=== PATIENT | male | born 1955 | race Caucasian/White ===

== ENCOUNTER → 2019-05-03 | Outpatient (CLI) | payer OTHER ==
[~2019-05-03] MED LIST: NAPR-683 PO; OXYC1TAB15 PO; SIMV20TA3 PO
--- NOTE | 2019-05-03 11:58 | RAD ---
RENAL COMPLETE BILATERAL History: Left flank pain, history of bladder cancer Comparison: None Findings: Multiple sonographic images of kidneys and urinary bladder are submitted. Right kidney measured 12 x 5 x 4.1 cm. The left kidney measured 13 x 5 x 5.8 cm. There is no hydronephrosis of either kidney. Urinary bladder morphology is overall within normal limits. Impression: 1. No significant abnormality is demonstrated. Electronically signed by: Saeed Varela MD (05/03/2019 11:55 AM) [id number]
== END | disposition home or self-care (01) ==
LOC: PMG 10:21
PROVIDERS: ATTEND Physician Assistant Medical
DX: R10.9 Unspecified abdominal pain (principal); Z85.51 Personal history of malignant neoplasm of bladder
CPT/HCPCS: 76770

== ENCOUNTER → 2019-06-06 | Outpatient (CLI) | payer OTHER ==
--- NOTE | 2019-06-06 13:14 | RAD ---
EXAM: Pelvis and bilateral hips, 5 views. HISTORY: Pain. COMPARISON: None. FINDINGS: A frontal view the pelvis and frontal and frog-leg views of both hips are obtained. There is no fracture, dislocation or subluxation. There is degenerative change at the lumbosacral junction. IMPRESSION: No acute osseous finding. Electronically signed by: Rita Camp MD (06/06/2019 1:11 PM) [facility]
== END | disposition home or self-care (01) ==
LOC: DXRAD 08:20
PROVIDERS: ATTEND Physician Assistant Medical
DX: M47.817 Spondylosis without myelopathy or radiculopathy, lumbosacral region (principal)
CPT/HCPCS: 73521

== ENCOUNTER 2021-03-03 12:16 | Emergency (ER) | payer OTHER ==
[~2021-03-03] VITALS: Ht 190.5 cm; Wt 105.0 kg
[~2021-03-03 12:16] MED LIST changes: +SIMV20TA18 PO; -SIMV20TA3 PO
[2021-03-03] MEDS ORDERED: ONDANSETRON PF 4 MG/2 ML VIAL. IVP ONE ×2 (12:45→16:30)
[2021-03-03] MEDS ORDERED: KETOROLAC 30 MG/ML VIAL. IVP ONE (12:45)
[2021-03-03] MEDS ORDERED: IOHEXOL 300 MG/ML 75 ML VIAL. IV ONE (13:00)
--- NOTE | 2021-03-03 13:42 | PHYS DOC ---
Past History Past Medical History: Cancer, Other Additional Past Medical Histor: SPINAL STENOSIS, BLADDER CANCER Past Surgical History: Other Additional Past Surgical Histo: BLADDER TUMOR REMOVED Alcohol Use: None General Adult EDM: Chief Complaint: ABDOMINAL PAIN HPI: HPI: 66-year-old male past medical history of bladder cancer s/p resection/in remission, presents to the ED with his sister Aliyah, (patient consents to his/her/their knowledge and involvement in pts' medical care), c/o sudden onset suprapubic abdominal pain, nausea and vomiting for the past 3 hours. States he's never had these sxs before. States pain is not hard to localize. No h/o kidney stones. Review of Systems: Review of Systems: Constitutional: Denies fever or chills Eyes: Denies change in visual acuity HENT: Denies nasal congestion or sore throat Respiratory: Denies cough or shortness of breath Cardiovascular: Denies chest pain or edema GI: Denies bloody stools or diarrhea : Denies dysuria or hematuria Musculoskeletal: Denies back pain or joint pain Integument: Denies rash or diaphoresis Neurologic: Denies headache, focal weakness or sensory changes Endocrine: Denies polyuria or polydipsia Lymphatic: Denies swollen glands Psychiatric: Denies depression or anxiety Current Medications: Current Meds: Current Medications Medications (Trade) Dose Ordered Sig/Kiran Start Time Stop Time Status Last Admin Dose Admin Iohexol (Omnipaque 300 Mg/ml) 75 ml 1X ONCE 03/03/21 13:00 03/03/21 13:01 DC Ketorolac Tromethamine (Toradol 30mg Vial) 30 mg 1X ONCE 03/03/21 12:45 03/03/21 12:46 DC 03/03/21 13:21 30 MG Metoclopramide HCl (Reglan Vial) 10 mg 1X ONCE 03/03/21 13:45 03/03/21 13:46 UNV Morphine Sulfate (Morphine 4mg Syringe) 4 mg 1X ONCE 03/03/21 13:45 03/03/21 13:46 UNV Ondansetron HCl (Zofran) 4 mg 1X ONCE 03/03/21 12:45 03/03/21 12:46 DC 03/03/21 12:58 4 MG Sodium Chloride 1,000 ml @ 1,000 mls/hr 1X ONCE 03/03/21 13:45 03/03/21 14:44 UNV Allergies: Allergies: Allergies Coded Allergies Type Severity Reaction Last Updated Verified No Known Drug Allergies 09/28/13 No Physical Exam: PE: Constitutional: in pain/writhing and dry heaving, no active emesis, afebrile HENT: Normocephalic, atraumatic, Eyes: EOMI, conjunctiva normal, no discharge. Neck: Normal range of motion, supple, Cardiovascular: S1/2 present, regular rhythm Lungs & Thorax: Speaking in full sentences, bilateral equal chest rise, no tachypnea or increased work of breathing Abdomen: soft, +suprapubic tenderness, on exam - reports mild/moderate LLQ ttp, warm abdomen-pain response? Skin: Warm, dry, no erythema, no rash. [] Back: No tenderness, no CVA tenderness. [] Extremities: No tenderness, no cyanosis, Neurologic: Alert and oriented X 3, normal motor function, normal sensory function, no focal deficits noted. [] Psychologic: Affect normal, judgement normal, mood normal. [] : no rash or pain Current Patient Data: Vital Signs: Vital Signs Date Time Temp Pulse Resp B/P (MAP) Pulse Ox O2 Delivery O2 Flow Rate FiO2 03/03/21 12:22 97.6 63 18 158/86 (110) 96 Room Air EKG: EKG: [] Radiology/Procedures: Radiology/Procedures: IMAGING REPORT Signed PATIENT: ALICIA ROGERS ACCOUNT: [id number] : 1955 LOCATION: ER AGE: 66 SEX: M EXAM STATUS: REG ER ORD. PHYSICIAN: VERONICA SALDIVAR APRN REASON: LLQ PAIN CONTRAST, HX BLADDER CANCER PROCEDURE: CT ABD PELV W/ IV CONTRST ONLY EXAMINATION: CT abdomen and pelvis with IV contrast. INDICATION:66 years, Male, left lower quadrant abdominal pain. History of bladder cancer. TECHNIQUE: Axial CT images of the abdomen and pelvis were obtained. Coronal and sagittal reformatted performed. COMPARISON: None. Exposure: One or more of the following individualized dose reduction techniques were utilized for this examination: 1. Automated exposure control 2. Adjustment of the mA and/or kV according to patient size 3. Use of iterative reconstruction technique. FINDINGS: LOWER CHEST: Dependent subsegmental atelectasis in bibasilar lungs. ABDOMEN/PELVIS: Normal morphology and size of the liver with homogeneous enhancement. Subcentimeter hypodensity in the right hepatic lobe, too small to characterize. Phrygian cap. No cholelithiasis or significant evidence of acute cholecystitis. No biliary ductal dilation. Unremarkable spleen and pancreas. Nodular thickening of the left adrenal gland without discrete nodule. Right adrenal gland is normal. No hydronephrosis or nephrolithiasis in either kidney. No bowel obstruction or wall thickening. Borderline thickened appendix tip with adjacent fat stranding, measures 7 mm in diameter (series 3 image 69). Colonic diverticulosis without diverticulitis. No bowel dilation. Moderate aortoiliac atherosclerotic calcifications without significant narrowing. Mesenteric arteries and portal vein are patent. No pneumoperitoneum or ascites. No abdominopelvic lymphadenopathy by size criteria. Multiple urinary bladder masses particularly in the right side, with the largest in the right posterior bladder base measures up to 5.9 x 2.8 cm. Punctate calcifications in the prostate. MUSCULOSKELETAL: Small fat-containing umbilical hernia. No acute osseous process or suspicious lesion. Multilevel degenerative changes in the spine. IMPRESSION: 1. Appendix extends to the mid lower abdomen with borderline thickened tip and adjacent subtle fat stranding. Finding may represent early/mild acute uncomplicated appendicitis. Clinical correlation is advised. 2. Multiple bladder masses, compatible with known history of bladder malignancy. 3. Other chronic/incidental findings, as described above. Electronically signed by: Aureliano Chance MD (03/03/2021 3:31 PM) [facility] DICTATED AND SIGNED BY: AURELIANO CHANCE MD DATE: 03/03/21 9935 CC: VERONICA SALDIVAR APRN; CIRO RICARDO; CIRO DRIVER DO ~MTH0 0 Heart Score: C/O Chest Pain: No Risk Factors: Risk Factors: DM, Current or recent (<one month) smoker, HTN, HLP, family history of CAD, obesity. Risk Scores: Score 0 - 3: 2.5% MACE over next 6 weeks - Discharge Home Score 4 - 6: 20.3% MACE over next 6 weeks - Admit for Clinical Observation Score 7 - 10: 72.7% MACE over next 6 weeks - Early Invasive Strategies Course & Med Decision Making: Course & Med Decision Making Pertinent Labs and Imaging studies reviewed. (See chart for details) Concern for lower abdominal pain, CT concerning for early or mild acute appendicitis. Faith score 2 on arrival. Repeat exam with mild right lower quadrant discomfort although patient is much more calm with morphine on board- Faith score 4. No abdominal rigidity, guarding or peritonitis. Patient was given 1 dose of antibiotics. Patient required repeat dosing for analgesia, nausea and vomiting. Sister at bedside reported she was seen for flulike symptoms in the ED and was later admitted to the ICU for acute appendicitis with perforation. I spoke to general surgery, Dr. Renteria who agrees with plan to transfer, antibiotics, IV fluids and npo. Likely full surgery consult in am. [facility] care. Patient excepted by Dr. Mccullough. Patient stable at time of transfer and agrees with this plan. I have spoken with the patient and/or caregivers-sister at bedside. I have explained the patient's condition, diagnosis and treatment plan based on the information available to me at this time. I have answered the patient's and/or caregivers questions and answered any concerns. The patient and/or caregivers have as good an understanding of the patient's diagnosis, condition and treatment plan as can be expected at this point. The patient has been stabilized within the capability of the emergency department. The patient will be transported for further care and management or will be moved to an observation or inpatient service. I have communicated with the staff or medical practitioner taking over this patient's care. Fabiola Disclaimer: Fabiola Disclaimer: This electronic medical record was generated, in whole or in part, using a voice recognition dictation system. Departure Departure: Impression: Primary Impression: Lower abdominal pain Additional Impression: Nausea & vomiting Disposition: 02 [facility] (transfer to [facility], accepted by Dr. Gagandeep benites) Condition: STABLE Referrals: CIRO RICARDO (PCP) CIRO DRIVER DO Mar 03, 2021 13:42
[2021-03-03] MEDS ORDERED: METOCLOPRAMIDE HCL 10 MG/2 ML VIAL. IVP ONE (13:45)
[2021-03-03] MEDS ORDERED: MORPHINE SULFATE 4 MG/ML DISP.SYRIN. IV ONE (13:45)
[2021-03-03] MEDS ORDERED: IV NORMAL SALINE 1,000ML 1,000 ML IV ONE ×2 (13:45→16:30)
[2021-03-03 13:48] LABS: BASO # 0.1 x10^3/uL (0.0-0.2); BASO % 1 % (0-3); EOS # 0.2 x10^3/uL (0.0-0.7); EOS % 2 % (0-3); HEMATOCRIT 48.4 % (39.0-53.0); HEMOGLOBIN 16.6 g/dL (13.0-17.5); LYMPH # 1.2 x10^3/uL (1.0-4.8); LYMPH % 14 % (24-48); MEAN CORPUSCULAR HEMOGLOBIN 31 pg (25-35); MEAN CORPUSCULAR HGB CONC 34 g/dL (31-37); MEAN CORPUSCULAR VOLUME 92 fL (79-100); MONO # 0.6 x10^3/uL (0.0-1.1); MONO % 6 % (0-9); NEUT # 7.1 x10^3uL (1.8-7.7); NEUT % 78 % (31-73); PLATELET COUNT 237 x10^3/uL (140-400); RED BLOOD COUNT 5.27 x10^6/uL (4.30-5.70); RED CELL DISTRIBUTION WIDTH 13.9 % (11.5-14.5); WHITE BLOOD COUNT 9.2 x10^3/uL (4.0-11.0)
[2021-03-03 14:40] LABS: CREATININE 1.2 mg/dL (0.7-1.3); GFR 60.8; POTASSIUM 4.2 mmol/L (3.5-5.1)
[2021-03-03 14:54] LABS: ALBUMIN 3.3 g/dL (3.4-5.0); ALBUMIN/GLOBULIN RATIO 0.8 (1.0-1.7); TOTAL BILIRUBIN 0.2 mg/dL (0.2-1.0); TOTAL PROTEIN 7.4 g/dL (6.4-8.2)
--- NOTE | 2021-03-03 15:33 | RAD ---
EXAMINATION: CT abdomen and pelvis with IV contrast. INDICATION:66 years, Male, left lower quadrant abdominal pain. History of bladder cancer. TECHNIQUE: Axial CT images of the abdomen and pelvis were obtained. Coronal and sagittal reformatted performed. COMPARISON: None. Exposure: One or more of the following individualized dose reduction techniques were utilized for thi s examination: 1. Automated exposure control 2. Adjustment of the mA and/or kV according to patient size 3. Use of iterative reconstruction technique. FINDINGS: LOWER CHEST: Dependent subsegmental atelectasis in bibasilar lungs. ABDOMEN/PELVIS: Normal morphology and size of the liver with homogeneous enhancement. Subcentimeter hypodensity in th e right hepatic lobe, too small to characterize. Phrygian cap. No cholelithiasis or significant evid ence of acute cholecystitis. No biliary ductal dilation. Unremarkable spleen and pancreas. Nodular thickening of the left adrenal gland without discrete nodule. Right adrenal gland is normal. No hydronephrosis or nephrolithiasis in either kidney. No bowel obstruction or wall thickening. Borde rline thickened appendix tip with adjacent fat stranding, measures 7 mm in diameter (series 3 image 6 9). Colonic diverticulosis without diverticulitis. No bowel dilation. Moderate aortoiliac atherosclerotic calcifications without significant narrowing. Mesenteric arteries and portal vein are patent. No pneumoperitoneum or ascites. No abdominopelvic lym phadenopathy by size criteria. Multiple urinary bladder masses particularly in the right side, with t he largest in the right posterior bladder base measures up to 5.9 x 2.8 cm. Punctate calcifications i n the prostate. MUSCULOSKELETAL: Small fat-containing umbilical hernia. No acute osseous process or suspicious lesion. Multilevel dege nerative changes in the spine. IMPRESSION: 1. Appendix extends to the mid lower abdomen with borderline thickened tip and adjacent subtle fat st randing. Finding may represent early/mild acute uncomplicated appendicitis. Clinical correlation is a dvised. 2. Multiple bladder masses, compatible with known history of bladder malignancy. 3. Other chronic/incidental findings, as described above. Electronically signed by: Byron Chance MD (03/03/2021 3:31 PM) [facility]
[2021-03-03] MEDS ORDERED: HYDROmorphone PF 1 MG/ML DISP.SYRIN IVP ONE (16:30)
[2021-03-03 16:32] LABS: BILIRUBIN,URINE NEG (NEG); CLARITY,URINE CLEAR; COLOR,URINE YELLOW; GLUCOSE,URINE NEG (NEG)
[2021-03-03 16:33] LABS: NITRITE,URINE NEG (NEG); UROBILINOGEN,URINE 0.2 mg/dL (0.2 mg/dL)
[2021-03-03 16:37] LABS: BACTERIA,URINE FEW /HPF (0-FEW)
[2021-03-03 16:38] LABS: SQUAMOUS EPITHELIAL CELL,UR OCC /LPF
[2021-03-03 18:57] VITALS: BP 111/61
== END 2021-03-03 19:26 | disposition short-term general hospital (02) ==
LOC: ER 12:16
DX: R10.32 Left lower quadrant pain (principal); R11.2 Nausea with vomiting, unspecified; Z85.51 Personal history of malignant neoplasm of bladder
CPT/HCPCS: 36415; 74177; 80053; 81001; 83605; 83615; 83690; 85025; 87086; 96361; 96365; 96375; 96376; 99285; J0694; J1170; J1885; J2270; J2405; J2765; J7030

== ENCOUNTER 2021-10-30 13:26 | Emergency (ER) | payer OTHER ==
[~2021-10-30] VITALS: Ht 190.5 cm; Wt 105.0 kg
[2021-10-30 13:47] VITALS: BP 180/103
--- NOTE | 2021-10-30 13:57 | PHYS DOC ---
Past History Past Medical History: Cancer, Other Additional Past Medical Histor: SPINAL STENOSIS, BLADDER CANCER (PHILLIP RODRIGUEZ APRN) Past Surgical History: Other Additional Past Surgical Histo: BLADDER TUMOR REMOVED (PHILLIP RODRIGUEZ APRN) Alcohol Use: None (PHILLIP RODRIGUEZ APRN) General Adult EDM: Chief Complaint: URINARY RETENTION HPI: HPI: Patient is a 66-year-old male who presents to the emergency department today for inability to urinate. Patient reports that he was discharged today from [facility] after having a surgery on his bladder for bladder cancer. Patient reports that he was urinating prior to discharge but has been able to urinate since being home. He was reporting suprapubic tenderness. He denies abdominal pain, nausea, vomiting, fevers, blood thinner use. (PHILLIP RODRIGUEZ APRN) Review of Systems: Review of Systems: Constitutional: negative unless reported in HPI Eyes: negative unless reported in HPI HENT: negative unless reported in HPI Respiratory: negative unless reported in HPI Cardiovascular: negative unless reported in HPI GI: negative unless reported in HPI : negative unless reported in HPI Musculoskeletal: negative unless reported in HPI Integument: negative unless reported in HPI Neurologic: negative unless reported in HPI Endocrine: negative unless reported in HPI Lymphatic: negative unless reported in HPI Psychiatric: negative unless reported in HPI (PHILLIP RODRIGUEZ APRN) Allergies: Allergies: Allergies Coded Allergies Type Severity Reaction Last Updated Verified No Known Drug Allergies 09/28/13 No (PHILLIP RODRIGUEZ APRN) Physical Exam: PE: Constitutional: Well developed, well nourished, no acute distress, non-toxic appearance. [] HENT: Normocephalic, atraumatic, bilateral external ears normal, oropharynx moist, no oral exudates, nose normal. [] Eyes: PERRLA, EOMI, conjunctiva normal, no discharge. [] Neck: Normal range of motion, no tenderness, supple, no stridor. [] Cardiovascular:Heart rate regular rhythm, no murmur [] Lungs & Thorax: Bilateral breath sounds clear to auscultation [] Abdomen: Bowel sounds normal, soft, no tenderness, no masses, no pulsatile masses. [] Skin: Warm, dry, no erythema, no rash. [] Back: No tenderness, no CVA tenderness. [] Extremities: No tenderness, no cyanosis, no clubbing, ROM intact, no edema. [] Neurologic: Alert and oriented X 3, normal motor function, normal sensory function, no focal deficits noted. [] Psychologic: Affect normal, judgement normal, mood normal. [] (PHILLIP RODRIGUEZ APRN) Current Patient Data: Vital Signs: Vital Signs Date Time Temp Pulse Resp B/P (MAP) Pulse Ox O2 Delivery O2 Flow Rate FiO2 10/30/21 13:47 84 16 180/103 (128) 97 10/30/21 13:37 98.4 Room Air (PHILLIP RODRIGUEZ APRN) EKG: EKG: [] (PHILLIP RODRIGUEZ APRN) Radiology/Procedures: Radiology/Procedures: [] (PHILLIP RODRIGUEZ APRN) Heart Score: C/O Chest Pain: N/A Risk Factors: Risk Factors: DM, Current or recent (<one month) smoker, HTN, HLP, family history of CAD, obesity. Risk Scores: Score 0 - 3: 2.5% MACE over next 6 weeks - Discharge Home Score 4 - 6: 20.3% MACE over next 6 weeks - Admit for Clinical Observation Score 7 - 10: 72.7% MACE over next 6 weeks - Early Invasive Strategies (PHILLIP RODRIGUEZ APRN) Course & Med Decision Making: Course & Med Decision Making Pertinent Labs and Imaging studies reviewed. (See chart for details) [] Patient presents to the emergency department for inability to urinate. Patient had a surgery for his bladder cancer at [facility] on Wednesday and was discharged today. Patient reports that he was able to urinate prior to discharge but has been unable to urinate since being home. When he arrived to the emergency department, ER advertising supervisor placed a Moreno catheter and patient does report improvement in his symptoms. Urinary catheter has drained 800 to 850 cc of urine that has gross blood in it. Patient reports that he has improvement in his symptoms. While I was obtaining HPI, patient reports that he wants to leave and go to [facility] where they performed the surgery. I notified patient that we do not have urology coverage at this hospital and would have to transfer him to that facility if we need to. Patient states "we will all just have my drive me there". Patient's blood pressure was elevated at 188/103. Patient reports a history of hypertension but states that he is was in pain and he is stressed because he had to dig his car out of his driveway today in the snow. I notified patient that his blood pressure is elevated and he needs to be evaluated for that. I notified patient that if he was to leave AGAINST MEDICAL ADVICE he needs to immediately go to [facility] for evaluation. I notified patient of the risks associated with leaving AGAINST MEDICAL ADVICE which includes worsening of his condition and possibly . AMA paper signed. Patient is alert and oriented x4 and capable of making his own medical decisions. Prior to discharge, patient's Moreno catheter was left in place and a leg bag was placed. (PHILLIP RODRIGUEZ APRN) Course & Med Decision Making I was the Attending physician on the above date of service of this patient. I was notified that patient wanted to leave AMA by midlevel practitioner shortly after being checked in with Moreno catheter placement. Prior to myself being able to eligibility counselor patient appropriately, he left AMA given that we did not have urologic services, that he did not want to wait, and that he did not want to be transferred Electronically signed, Danni Gonzales DO (DANNI GONZALES DO) Fabiola Disclaimer: Fabiola Disclaimer: This electronic medical record was generated, in whole or in part, using a voice recognition dictation system. (PHILLIP RODRIGUEZ APRN) Departure Departure: Impression: Primary Impression: Urinary complication, postoperative Additional Impression: Urinary retention Disposition: LEFT AGAINST MEDICAL ADVICE Condition: GUARDED Referrals: CIRO RICARDO (PCP) PHILLIP RODRIGUEZ APRN Oct 30, 2021 13:57 DANNI GONZALES DO Oct 31, 2021 06:07
[2021-10-31] MEDS ORDERED: HYDR-2763 PO (10:36)
== END 2021-10-30 13:59 | disposition left against medical advice (07) ==
LOC: ER 13:26
DX: N99.89 Other postprocedural complications and disorders of genitourinary system (principal); R33.9 Retention of urine, unspecified
CPT/HCPCS: 51702; 99284

== ENCOUNTER 2021-10-31 08:47 | Emergency (ER) | payer OTHER ==
[~2021-10-31] VITALS: Ht 193 cm; Wt 100.0 kg
--- NOTE | 2021-10-31 08:49 | PHYS DOC ---
Past History Past Medical History: Cancer, Other Additional Past Medical Histor: SPINAL STENOSIS, BLADDER CANCER Past Surgical History: Other Additional Past Surgical Histo: BLADDER TUMOR REMOVED Alcohol Use: None Adult General HPI HPI Patient is a 66-year-old male complaining of postoperative problems. Patient was initially seen yesterday but left AMA after receiving Moreno catheter. Reports he has history of bladder cancer of unknown stage but thinks it went to his prostate and is postop day 7 of an unknown surgical procedure " where they went through my penis". Unsure what type of surgical intervention was performed but reports having postoperative pain and hematuria ever since. States he had CT abdomen pelvis performed prior to intervention but unsure of the findings. Presented yesterday for pain but left AMA after having Moreno catheter placed. Today, he initially went to primary care physician's office for outpatient follow-up and to review need for represcription of his chronic opiate medication which they prescribed. Nonetheless, he was moaning in the lobby and subsequently advised to come down to the ER for immediate evaluation.He has not called his urologist regarding recent events. States he has pain to distal aspect of penis at insertion of Moreno. States Moreno catheter has been patent with adequate passage of mostly blood into bag. He is not on any blood thinners or other anticoagulants Review of Systems Review of Systems Fourteen body systems of review of systems have been reviewed. See HPI for pertinent positives and negative responses, other eaton all other systems are negative, non-pertinent or non-contributory Allergies Allergies Allergies Coded Allergies Type Severity Reaction Last Updated Verified No Known Drug Allergies 09/28/13 No Physical Exam Physical Exam Constitutional: Well developed, well nourished, appears to be in moderate distress at times due to pain but overall nontoxic in appearance HENT: Normocephalic, atraumatic, bilateral external ears normal, oropharynx moist, no oral exudates, nose normal. Eyes: PERRLA, EOMI, conjunctiva normal, no discharge. Neck: Normal range of motion, no tenderness, supple, no stridor. Cardiovascular: Heart rate regular, sinus rhythm, no murmurs rubs or gallops Lungs & Thorax: Bilateral breath sounds clear to auscultation Abdomen: Bowel sounds normal, soft, no tenderness, no masses, no pulsatile masses. Nonsurgical abdomen, no peritoneal signs. Penis well-appearing with Moreno catheter placement in adequate position draining well with dark blood without significant clots in bag, testicles descended bilaterally without any palpable and/or visual abnormalities Skin: Warm, dry, no erythema, no rash. Back: No tenderness, no CVA tenderness. Extremities: No tenderness, no cyanosis, no clubbing, ROM intact, no edema. Neurologic: Alert and oriented X 3, grossly normal motor & sensory function, no focal deficits noted. Psychologic: Agitated affect and mood Current Patient Data Vital Signs Vital Signs Date Time Temp Pulse Resp B/P (MAP) Pulse Ox O2 Delivery O2 Flow Rate FiO2 10/31/21 09:10 98.5 149/79 (102) Vital Signs Date Time Temp Pulse Resp B/P (MAP) Pulse Ox O2 Delivery O2 Flow Rate FiO2 10/31/21 09:10 98.5 149/79 (102) EKG EKG [] Radiology/Procedures Radiology/Procedures [] Heart Score C/O Chest Pain: No Risk Factors: Risk Factors: DM, Current or recent (<one month) smoker, HTN, HLP, family history of CAD, obesity. Risk Scores: Risk Factors: DM, Current or recent (<one month) smoker, HTN, HLP, family histo ry of CAD, obesity. Course & Med Decision Making Course & Med Decision Making ABCs unremarkable HPI physical exam and comprehensive ER work-up nonconcerning for any emergent or surgical issues Patient unclear on majority of his recent history of presenting illness. Main reason today is pain control with improvement in symptoms after urOGEL applicati on and [place] Discussed ongoing chronic pain medication situation which is primary reason patient presented today. He has pain contract with primary care physician. Joint decision made to prescribe short-term opiate medications prior to ER departure Nonetheless, before discharge, ER was notified by primary care team that they refilled his chronic opiate medications. I subsequently canceled my new prescription. Patient has good access to urologist to he spoke with while in ER setting and advised close outpatient follow-up next week with Moreno bag to remain in place as it is patent after continuous irrigation etc. Dragon Disclaimer Dragon Disclaimer This electronic medical record was generated, in whole or in part, using a voice recognition dictation system. Departure Departure: Impression: Primary Impression: Urinary complication, postoperative Additional Impression: Chronic pain Disposition: HOME / SELF CARE / HOMELESS Condition: STABLE Referrals: CIRO RICARDO (PCP) Additional Instructions: As discussed prior to ER departure, your vitals and physical exam were nonconcerning for any emergent or surgical issues. You are suffering from classic pain from Moreno catheter that resolved with applied urinary gel. You are also suffering from acute on chronic pain especially given the fact that you ran out of your home prescription strength opiate medications. Joint decision was made to prescribe extremely short-term dose of this medication until you can be seen and have this filled and/or addressed in outpatient setting by her primary care physician who does this chronically for you. You also need to contact your urologist immediately after ER departure to review need for close outpatient follow-up regarding recent Moreno catheter insertion and fact that you are postoperative an unknown procedure that you had performed 1 week ago. Any concerning signs or symptoms present prior to outpatient follow-up it is advised to seek care at an emergency room that has urology access. It was a pleasure to take care of you and I wish you the best going forward Problem Qualifiers DANNI GONZALES DO Oct 31, 2021 08:49
[2021-10-31] MEDS ORDERED: LIDOCAINE 2% JELLY 6ML IN APPLICATOR. ONE (09:15)
[2021-10-31] MEDS ORDERED: LIDOCAINE 2% JELLY 6ML IN APPLICATOR. MM ONE (09:30)
[2021-10-31] MEDS ORDERED: HYDROcodone/APAP 7.5/325MG 1 TAB TABLET PO ONE (09:30)
[2021-10-31] MEDS ORDERED: HYDR-2763 PO (10:36)
[2021-10-31 11:39] VITALS: BP 132/73
== END 2021-10-31 12:03 | disposition home or self-care (01) ==
LOC: ER 08:47
DX: N99.89 Other postprocedural complications and disorders of genitourinary system (principal); G89.29 Other chronic pain; R31.9 Hematuria, unspecified; Z85.51 Personal history of malignant neoplasm of bladder
CPT/HCPCS: 99283

== ENCOUNTER 2021-11-03 16:21 | Emergency (ER) | payer OTHER ==
[~2021-11-03] VITALS: Ht 190.5 cm; Wt 97.1 kg
[~2021-11-03 16:21] MED LIST changes: +HYDR-2763 PO
[2021-11-03 17:15] VITALS: BP 153/96
[2021-11-03] MEDS ORDERED: LEVO750T5 PO (17:52)
--- NOTE | 2021-11-03 17:52 | PHYS DOC ---
Past History Past Medical History: Cancer, Other Additional Past Medical Histor: SPINAL STENOSIS, BLADDER CANCER Past Surgical History: Cancer Surgery, Other Additional Past Surgical Histo: BLADDER TUMOR REMOVED Additional Smoking Information: 1/2 PACK Alcohol Use: Rarely Adult General Chief Complaint Chief Complaint: URINE CATHETER PROBLEM HPI HPI Patient is a 66-year-old male who presents to the emergency department requesting that his indwelling Moreno catheter be removed. Patient reports last Wednesday he had bladder surgery related to bladder cancer, 2 days later was unable to void and presented to this emergency department, had a Moreno catheter placed and was diagnosed with hematuria. Patient reports his primary care physician Dr. Roth advised him to return to this emergency department for Moreno catheter removal once his urine is clear and yellow. Patient reports clear yellow urine in his Moreno leg bag device, denies pressure, burning, abdominal discomfort, or other problems related to his Moreno catheter. Patient denies other physical complaints or physical concerns. Review of Systems Review of Systems 14 body systems of review of systems have been reviewed. See HPI for pertinent positives and negative responses, otherwise all other systems are negative, nonpertinent or noncontributory. Constitutional: Negative except as outlined in HPI above. Skin: Negative except as outlined in HPI above. Eyes: Negative except as outlined in HPI above. HENT: Negative except as outlined in HPI above. Respiratory: Negative except as outlined in HPI above. Cardiovascular: Negative except as outlined in HPI above. GI: Negative except as outlined in HPI above. : Negative except as outlined in HPI above. Musculoskeletal: Negative except as outlined in HPI above. Integument: Negative except as outlined in HPI above. Neurologic: Negative except as outlined in HPI above. Endocrine: Negative except as outlined in HPI above. Lymphatic: Negative except as outlined in HPI above. Psychiatric: Negative except as outlined in HPI above. Allergies Allergies Allergies Coded Allergies Type Severity Reaction Last Updated Verified No Known Drug Allergies 09/28/13 No Physical Exam Physical Exam Constitutional: Well developed, well nourished, no acute distress, non-toxic appearance. 66-year-old male in no apparent distress. HENT: Normocephalic, atraumatic. Eyes: Conjunctiva normal, no discharge. Neck: Normal range of motion. Cardiovascular: Distal cap refill less than 2 seconds, no cyanosis appreciated. Lungs & Thorax: Patient is in no respiratory distress, no adventitious lung sounds appreciated. Abdomen: Bowel sounds normal, soft, no tenderness, no masses, no pulsatile masses. No bruising or skin discoloration of the abdomen. Skin: Warm, dry, no erythema, no rash. Back: No tenderness, no CVA tenderness. Extremities: No tenderness, no cyanosis, no clubbing, ROM intact, no edema. Neurologic: Alert and oriented X 3, normal motor function, normal sensory function, no focal deficits noted. Psychologic: Affect normal, judgement normal, mood normal. : Patient has indwelling Moreno catheter attached to leg bag with clear yellow urine draining in leg bag, no redness erythema or drainage noted from external urinary meatus. Current Patient Data Vital Signs Vital Signs Date Time Temp Pulse Resp B/P (MAP) Pulse Ox O2 Delivery O2 Flow Rate FiO2 11/03/21 17:15 98.1 90 20 153/96 (115) 97 Room Air EKG EKG [] Radiology/Procedures Radiology/Procedures [] Heart Score C/O Chest Pain: No Risk Factors: Risk Factors: DM, Current or recent (<one month) smoker, HTN, HLP, family history of CAD, obesity. Risk Scores: Risk Factors: DM, Current or recent (<one month) smoker, HTN, HLP, family history of CAD, obesity. Course & Med Decision Making Course & Med Decision Making Pertinent Labs and Imaging studies reviewed. (See chart for details) 66-year-old male, vital signs reviewed, presents to the emergency department for removal of indwelling Moreno catheter status post hematuria 2 days after bladder cancer surgery. Patient had Moreno catheter placed here in this emergency department 4 days ago on 10/30/2021. Patient currently has clear yellow urine draining in leg bag. Discussed with patient ED planning will remove Moreno catheter, will give patient p.o. fluids to drink, wants patient voids we will released to home, will send prescription to pharmacy of choice for antibiotic UTI prophylaxis regimen. Patient is amenable to ED planning. Moreno catheter removed by ED sales team manager. After period of time, patient did void yellow urine, this was sent to lab for urinalysis assay. Patient was discharged home with prescription for 750 mg levofloxacin daily x5 days. Discussed with the patient all findings and diagnostic testing as well as the need to follow-up with their primary care provider for further evaluation and treatment or return to the ED if any new or worsening symptoms. Strict return precautions were also discussed at length, the patient voiced understanding and agreement with the discharge planning. The patient was nontoxic in appearance, in no apparent distress, and hemodynamically stable at the time of disposition. Dragon Disclaimer Dragon Disclaimer This electronic medical record was generated, in whole or in part, using a voice recognition dictation system. Departure Departure: Impression: Primary Impression: Encounter for Moreno catheter removal Disposition: HOME / SELF CARE / HOMELESS Condition: GOOD Referrals: CIRO RICARDO (PCP) Additional Instructions: You were seen today in the emergency department for a removal of your indwelling urinary Moreno catheter. This was removed today in the emergency department. You have urinated since removal, this has been sent to the lab for a urinalysis assay to check for infection. As a precaution I am starting you on an antibiotic that you will take 1 tablet each day for the next 5 days. Please return to the emergency department for worsening symptoms or return of difficulty urinating or other concerns. Please keep your follow-up appointments with your bladder cancer doctor. Thank you for visiting our Emergency Department. It was a pleasure taking care of you today in the emergency department and we appreciate you trusting us with your care. If any additional problems come up don't hesitate to return to visit us. Please follow up with your primary care provider so they can plan additional care if needed and know about the problem that you had. If symptoms worsen come back to the Emergency Department. Any concerning symptoms that start such as chest pain, shortness of air, weakness or numbness on one side of the body, running high fevers or any other concerning symptoms return to the ER. Scripts Levofloxacin (LEVOFLOXACIN) 750 Mg Tablet 1 TAB PO DAILY for uti , #5 TAB 0 Refills Prov: VERONICA SALDIVAR APRN 11/03/21 VERONICA SALDIVAR APRN Nov 03, 2021 17:52
[2021-11-03 19:08] LABS: CLARITY,URINE HAZY; COLOR,URINE YELLOW; GLUCOSE,URINE NEG (NEG); NITRITE,URINE NEG (NEG); UROBILINOGEN,URINE 0.2 mg/dL (0.2 mg/dL)
[2021-11-03 19:09] LABS: BACTERIA,URINE FEW /HPF (0-FEW); RBC,URINE 20-40 /HPF (0-2); SQUAMOUS EPITHELIAL CELL,UR FEW /LPF; YEAST,URINE PRESENT /HPF
== END 2021-11-03 18:09 | disposition home or self-care (01) ==
LOC: ER 16:21
DX: Z46.6 Encounter for fitting and adjustment of urinary device (principal); F17.200 Nicotine dependence, unspecified, uncomplicated; Z85.51 Personal history of malignant neoplasm of bladder
CPT/HCPCS: 81001; 87086; 99283